=== PATIENT | female | born 1960 | race Two or more races ===

== ENCOUNTER 2022-10-10 09:05 | Emergency (ER) | payer BC, OTHER ==
[~2022-10-10] VITALS: Ht 149.9 cm; Wt 68.0 kg
[2022-10-10 10:53] LABS: Basophils # (auto) 0.1 10 ^3/uL (0-0.2); Basophils % (auto) 0.4 % (0.0-2.0); Eosinophils # (auto) 0.1 10 ^3/uL (0-0.8); Eosinophils % (auto) 0.6 % (0.0-7.0); Hematocrit 42.1 % (36.0-46.0); Lymphocytes # (auto) 2.1 10 ^3/uL (0.4-5.4); Lymphocytes % (auto) 18.6 % (10.0-50.0); Mean Corpuscular Hemoglobin 29.7 pg (28.0-32.0); Mean Corpuscular Hgb Conc. 33.3 g/dL (32.0-36.0); Monocytes # (auto) 0.8 10 ^3/uL (0-1.3); Monocytes % (auto) 6.8 % (0.0-12.0); Neutrophils # (auto) 8.5 10 ^3/uL (1.6-8.6); Neutrophils % (auto) 73.6 % (37.0-80.0); Red Blood Cells 4.73 10^6/uL (4.0-5.20); Red Cell Distribution Width 13.3 % (11.8-14.3); White Blood Cell 11.6 10^3/uL (4.4-10.8)
[2022-10-10 11:28] LABS: Albumin 3.8 g/dL (3.4-5.0); BUN/Creatinine Ratio 6.4; Bilirubin, Total 0.4 mg/dL (0.2-1.0); Calcium 9.4 mg/dL (8.5-10.1); Potassium 4.5 mmol/L (3.5-5.1); Total Protein 7.7 g/dL (6.4-8.2)
[2022-10-10] MEDS ORDERED: HYDROcodone-ACET 5/325MG TAB PO ONE (12:30)
[2022-10-10] MEDS ORDERED: ONDANSETRON HCL 4 MG/2 ML VIAL IV ONE (12:30)
[2022-10-10 14:04] LABS: Urine Blood Negative /uL (Negative); Urine Specific Gravity 1.005 (1.001-1.035)
[2022-10-10] MEDS ORDERED: CIP500T PO (16:00)
[2022-10-10] MEDS ORDERED: METR500T14 PO (16:00)
[2022-10-10 16:36] VITALS: BP 131/88
== END 2022-10-10 16:37 | disposition home or self-care (01) ==
LOC: ER 09:05
DX: K57.32 Diverticulitis of large intestine without perforation or abscess without bleeding (principal); E11.9 Type 2 diabetes mellitus without complications; Z90.49 Acquired absence of other specified parts of digestive tract
CPT/HCPCS: 36415; 74177; 80053; 81001; 82962; 83605; 83690; 84484; 85025; 96374; 99285; J2405; Q9967

== ENCOUNTER 2025-10-28 07:29 | Outpatient (CLI) | payer BC ==
[~2025-10-28] VITALS: Ht 149.9 cm; Wt 66.7 kg
[~2025-10-28 07:29] MED LIST: CIP500T PO; METR-344 PO
[2025-10-28] MEDS: REGADENOSON 0.4 MG/5 ML SYRG IV ONE ×2 (08:28→09:48)
--- NOTE | 2025-11-02 08:58 | DVHSR ---
APPROVED REPORT Exam: Nuclear Stress Test BMI: 0 Stress Test Details Stress Test: Pharmacologic stress testing performed using 0.4 mg of regadenoson per 5 mL given IV over 10 seconds. HR Resting HR: 56 bpm Max Heart Rate (APMHR): 157.588865 bpm Max HR Achieved: 72 bpm Target HR (85% APMHR): 133.003104 bpm % of APMHR: 45.86 Recovery HR: 58 bpm BP Resting BP: 124/75 mmHg Recovery BP: 140/86 mmHg ECG Resting ECG: Sinus Bradycardia Clinical Reason for Termination: Completed protocol Nurse Comments Recieved pt. from [facility]. A/Ox4 on RA. Connected to conveyor monitor, VS stable. PIV flushes well. Reviewed POC. Pt. verbalized understanding of procedure including risks and side effects, agrees for stress testing. Lexiscan stress test performed per protocol. [facility] tech administered Cardiolite. Pt. tolerated well. Pt. stable, no change on exam. VS returned to baseline. Transferred to [facility] via wheelchair w/ tech. Stress ECG Conclusion lvef 65% normal perfusion scan no severe ischemia NM EXAM: Myocardial Perfusion REST/STRESS Imaging Protocol: Rest Tc-99m/Stress Tc-99m 1 day Resting Data Rest SPECT myocardial perfusion imaging was performed in supine position 60 minutes following the intravenous injection of 10.1 mCi of Tc-99m Sestamibi. Time of rest injection: 0808 Time of rest imagin Administration Route: IV Administration Site: Left Hand Pharmacologic Stress Pharmacologic stress test was performed by injecting Regadenoson 0.4 mg IV push followed by the intravenous injection of 27.6 mCi of Tc-99m Sestamibi. Time of stress injection: 0950 Time of stress imagin Administration Route: IV Administration Site: Left Hand Gated Stress SPECT was performed 75 minutes after stress injection. The images were gated to evaluate regional wall motion and calculate left ventricular ejection fraction. Nuclear Conclusion Nuclear Findings: negative for ischemia lvef 65% normal perfusion scan no severe ischemia
== END 2025-10-28 17:00 | disposition home or self-care (01) ==
LOC: XYW 07:29
PROVIDERS: ATTEND Internal Medicine
DX: Z01.810 Encounter for preprocedural cardiovascular examination (principal); Z12.11 Encounter for screening for malignant neoplasm of colon; R00.2 Palpitations; R00.1 Bradycardia, unspecified
CPT/HCPCS: 78452; 93017; A9500; J2785

== ENCOUNTER → 2025-11-11 | Outpatient (CLI) | payer BC | END | disposition home or self-care (01) | LOC: LAB 08:28 | PROVIDERS: ATTEND Nurse Practitioner Family | DX: E03.9 Hypothyroidism, unspecified (principal) | CPT/HCPCS: 36415; 84443 ==